=== PATIENT | male | born 1985 | race African-American/Black ===

== ENCOUNTER 2016-07-24 22:40 | Emergency (ER) | payer SELFPAY ==
[2016-07-24 22:56] VITALS: BP 144/94; PULSE 82; TEMP 98.2; BMI 26.7
--- NOTE | 2016-07-24 23:55 | PDOC ---
History of Present Illness - General Chief Complaint: Eye Problem Stated Complaint: LEFT EYE IRRITATION Time Seen by Provider: 07/24/16 23:20 History Source: Patient Exam Limitations: No Limitations - History of Present Illness Initial Comments: 07/24/16 23:45 31yo Male patient presents to ED c/o left eye redness. Patient states symptoms began after he removed his contacts lens last night. Denies blurred vision, change in vision, double vision, eye pain, or any other complaints at this time. Timing/Duration: getting worse Severity: moderate Modifying Factors: worse with: cold therapy, eating, immobilization, medication , movement, rest, other Associated Symptoms: denies: denies symptoms, chest pain, cough, diaphoresis, fever/chills, headaches, loss of appetite, malaise, nausea/vomiting, rash, seizure, shortness of breath, syncope, weakness, other Aspirin Received prior to arrival: No: no aspirin today, unknown, 81 mg x 1, 81 mg x 2, 81 mg x 3, 81 mg x 4, 325 mg x 1, provided at home, provided by EMS, provided by ED Past History - Travel Traveled outside of the country in the last 30 days: No Close contact w/someone who was outside of country & ill: No - Past Medical History Allergies/Adverse Reactions: Allergies Allergy/AdvReac Type Severity Reaction Status Date / Time No Known Allergies Allergy Verified 07/24/16 22:53 Home Medications: Ambulatory Orders Ofloxacin 0.3% Ophth Soln [Ocuflox -] 1 drop OD Q4H #100 drops 10/03/15 Cardiac Disorders: Yes (heart mummer) - Surgical History Abdominal Surgery: Yes (HERNIA REPAIR) - Psycho/Social/Smoking Cessation Hx Anxiety: No Suicidal Ideation: No Smoking Status: Yes Smoking History: Current every day smoker Number of Cigarettes Smoked Daily: 5 Information on smoking cessation initiated: No Hx Alcohol Use: No Drug/Substance Use Hx: No Substance Use Type: Alcohol, Marijuana Review of Systems - Review of Systems Able to Perform ROS?: Yes Is the patient limited Bengali proficient: No Constitutional: No: Chills, Fever HEENTM: Yes: Other (Eye Redness). No: Eye Pain, Blurred Vision, Tearing, Recent change in vision, Double Vision, Cataracts, Ear Pain, Nose Congestion, Nose Bleeding, Hearing Loss, Throat Pain, Throat Swelling, Mouth Pain Respiratory: No: Cough, Orthopnea, Shortness of Breath, Wheezing Cardiac (ROS): No: Chest Pain, Edema, Palpitations, Syncope Neurological: No: Headache All Other Systems: Reviewed and Negative *Physical Exam - Vital Signs Last Vital Signs Temp Pulse Resp BP Pulse Ox 98.2 F 82 20 144/94 99 07/24/16 22:54 07/24/16 22:54 07/24/16 22:54 07/24/16 22:54 07/24/16 22:54 - Physical Exam General Appearance: Yes: Nourished, Appropriately Dressed. No: Apparent Distress, Mild Distress, Moderate Distress, Severe Distress HEENT: positive: EOMI, EVERARDO, Normal ENT Inspection, Normal Voice, Symmetrical, TMs Normal, Pharynx Normal, Other (Severe/Injected left conjunctivae, with mild redness to right conjunctivae). negative: Pale Conjunctivae, Photophobia, Pharyngeal Erythema, Tonsillar Exudate, Tonsillar Erythema, TM Erythema Neck: positive: Trachea midline, Normal Thyroid, Supple Respiratory/Chest: positive: Lungs Clear, Normal Breath Sounds. negative: Respiratory Distress, Accessory Muscle Use, Labored Respiration Cardiovascular: positive: Regular Rhythm, Regular Rate. negative: Edema, JVD Gastrointestinal/Abdominal: positive: Normal Bowel Sounds, Soft. negative: Distended, Guarding, Rebound, Tenderness Musculoskeletal: positive: Normal Inspection. negative: CVA Tenderness Extremity: positive: Normal Capillary Refill, Normal Inspection, Normal Range of Motion. negative: Swelling Integumentary: positive: Normal Color, Dry, Warm. 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 Follow up with your primary care provider this week for further evaluation. Return if symptoms worsen, or any concerns for further evaluation. Print Language: URUGUAYAN - Post Discharge Activity Work/School Note: Back to Work
[2016-07-25] MEDS ORDERED: OFLOXACIN 0.3% OPHTHALMIC SOLUTION 5 ML BOTTLE OU ONE (00:03)
[2016-07-25] MEDS ORDERED: CIPROFLOXACIN HCL 0.3% OPHTH 2.5ML BOTTLE ONE (00:11)
[2016-07-25] MEDS ORDERED: CIPROFLOXACIN 0.3% EYE DROPS 5 ML BOTTLE OU ONE (00:11)
== END 2016-07-25 00:15 | disposition home or self-care (01) ==
LOC: JER 22:40
DX: H10.32 Unspecified acute conjunctivitis, left eye (principal); B96.89 Other specified bacterial agents as the cause of diseases classified elsewhere
CPT/HCPCS: 99281-25